=== PATIENT | male | born 1960 | race Caucasian/White ===

== ENCOUNTER 2019-07-10 17:14 | Emergency (ER) | payer BC ==
[~2019-07-10] VITALS: Ht 175.3 cm; Wt 97.7 kg
[2019-07-10 17:21] VITALS: BP 167/90
[2019-07-10] MEDS ORDERED: COU4T PO (17:33)
== END 2019-07-10 18:52 | disposition home or self-care (01) ==
LOC: ER 17:15
DX: D68.59 Other primary thrombophilia (principal); I25.10 Atherosclerotic heart disease of native coronary artery without angina pectoris; I10 Essential (primary) hypertension; Z76.0 Encounter for issue of repeat prescription; Z98.890 Other specified postprocedural states; Z79.899 Other long term (current) drug therapy; Z87.891 Personal history of nicotine dependence; Z79.01 Long term (current) use of anticoagulants
CPT/HCPCS: 36415; 85610; 99283